=== PATIENT | male | born 1945 | race Caucasian/White ===

== ENCOUNTER 2021-06-16 15:11 | Inpatient (IN) | payer OTHER ==
[2021-06-16] MEDS ORDERED: SODIUM CHLORIDE 1,000 ML IV STA (15:36)
[2021-06-16 16:08] LABS: HEMATOCRIT 24.4 % (35.4-49); HEMOGLOBIN 7.6 GM/dL (11.7-16.9); MCH 21.7 pg (25.7-33.7); MCHC 31.2 g/dl (32.0-35.9); MEAN CELL VOLUME 69.4 fl (80-96); MEAN PLT VOLUME 8.4 fl (7.5-11.1); PLATELET COUNT 563 10^3/uL (134-434); RBC 3.52 M/mm3 (4.00-5.60); RDW 18.4 % (11.9-15.9); WHITE BLOOD COUNT 15.6 K/mm3 (4.0-10.0)
[2021-06-16 16:13] LABS: INR 1.06 (0.83-1.09)
[2021-06-16 16:16] LABS: ACTIVATED PTT 27.7 SECONDS (25.2-36.5)
[2021-06-16 16:23] LABS: VENOUS BASE EXCESS 0.2 mmol/L (-2-2); VENOUS PCO2 50.2 mmHg (38-52); VENOUS PH 7.337 (7.310-7.410)
[2021-06-16 16:24] LABS: ALBUMIN 2.2 g/dl (3.4-5.0); BLOOD UREA NITROGEN 92.5 mg/dL (7-18); CALCIUM 9.9 mg/dL (8.5-10.1); MAGNESIUM 3.4 mg/dL (1.8-2.4)
[2021-06-16 16:27] LABS: CREATININE 5.6 mg/dL (0.55-1.3)
[2021-06-16 16:29] LABS: BILIRUBIN,TOTAL 0.4 mg/dL (0.2-1); TOT PROT 8.1 g/dl (6.4-8.2)
[2021-06-16 16:30] LABS: LACTIC ACID 2.7 mmol/L (0.4-2.0)
[2021-06-16 16:35] LABS: ANISOCYTOSIS 2+; MACROCYTOSIS 0; PLATELET ESTIMATE INCREASED; TARGET CELLS 1+
[2021-06-16] MEDS ORDERED: PIPERACILLIN/TAZOB 4.5 GM 4.5 GM in DEXTROSE 5%-WATER 100 ML IVPB ONE (16:42)
[2021-06-16] MEDS ORDERED: VANCOMYCIN HCL 1,000 MG in DEXTROSE 5%-WATER - 500 ML IVPB ONE (16:42)
[2021-06-16] MEDS ORDERED: LACTATED RINGERS SOLUTION 1000 ML INFUS.BAG IV ONE (16:46)
[2021-06-16] MEDS ORDERED: VANCOMYCIN 1 GRAM (PRE-DOCKED) 1,000 MG/250 ML BAG IVPB ONE ×2 (16:50→18:10)
[2021-06-16] MEDS ORDERED: PIPERACILLIN/TAZOB 4.5 GM 4.5 GM/100 ML BAG IVPB ONE (16:50)
[2021-06-16 17:01] LABS: EPI CELLS 1 /uL (0-25.1); HYALINE CASTS 0 /uL (0-3.1); URINE APPEARANCE CLEAR; URINE BILIRUBIN 2+ (NEGATIVE); URINE COLOR DK YELLOW; URINE GLUCOSE (UA) TRACE (NEGATIVE); URINE KETONE TRACE (NEGATIVE); URINE LEUK ESTERASE 1+ (NEGATIVE); URINE NITRITE POSITIVE (NEGATIVE); URINE PROTEIN 2+ (NEGATIVE); URINE UROBILINOGEN 0.2 mg/dL (0.2-1.0); URINE WBC 1 /uL (0-25.8)
[2021-06-16] MEDS ORDERED: SODIUM CHLORIDE 1,000 ML IV SCH (21:30)
[2021-06-16] MEDS ORDERED: VANCOMYCIN 1 GM in D5W (PRE-DOCKED) 1,000 MG/250 ML IVPB SCH ×2 (21:45→22:00)
[2021-06-17] MEDS: HEPARIN NA (PORCINE) 5,000 UNITS/ML 1ML VIAL SQ SCH ×4 (01:01→23:59)
[2021-06-17] MEDS ORDERED: PIPERACILLIN/TAZOB 2.25 GM 2.25 GM in DEXTROSE 5%-WATER - 50 ML IVPB SCH (02:00)
[2021-06-17] MEDS ORDERED: VANCOMYCIN 1 GRAM (PRE-DOCKED) 1,000 MG/250 ML BAG IVPB ONE (02:35)
[2021-06-17] MEDS ORDERED: PIPERACILLIN/TAZOB 2.25 GM 2.25 GM/50 ML BAG IVPB ONE ×3 (02:35→18:11)
[2021-06-17] MEDS: PIPERACILLIN/TAZOB 2.25 GM 2.25 GM in DEXTROSE 5%-WATER - 50 ML IVPB SCH ×3 (02:48→18:11)
[2021-06-17] MEDS: INSULIN SLIDING SCALE (NOVOLOG) 1 VIAL SQ SCH ×5 (02:49→21:58)
[2021-06-17] MEDS ORDERED: VANCOMYCIN 1 GM in D5W (PRE-DOCKED) 1,000 MG/250 ML IVPB SCH (05:00)
[2021-06-17] MEDS ORDERED: HEPARIN NA (PORCINE) 5,000 UNITS/ML 1ML VIAL ONE (06:11)
[2021-06-17 06:30] LABS: BASO % 0.4 % (0-2.0); EOS % 0.1 % (0-4.5); LYMPH % 10.2 % (8-40); MCH 22.1 pg (25.7-33.7); MCHC 31.8 g/dl (32.0-35.9); MEAN CELL VOLUME 69.5 fl (80-96); MEAN PLT VOLUME 8.3 fl (7.5-11.1); MONO % 6.3 % (3.8-10.2); PLATELET COUNT 425 10^3/uL (134-434); RBC 2.59 M/mm3 (4.00-5.60); RDW 17.8 % (11.9-15.9); RETICULOCYTES 2.05 % (0.5-1.5); WHITE BLOOD COUNT 15.7 K/mm3 (4.0-10.0)
[2021-06-17 06:44] LABS: HEMOGLOBIN 5.7 GM/dL (11.7-16.9)
[2021-06-17 06:48] LABS: BLOOD UREA NITROGEN 98.8 mg/dL (7-18)
[2021-06-17 06:52] LABS: BILIRUBIN,TOTAL 0.5 mg/dL (0.2-1); CREATININE 5.3 mg/dL (0.55-1.3); PHOSPHOROUS 5.6 mg/dL (2.5-4.9); TOT PROT 6.4 g/dl (6.4-8.2)
[2021-06-17 06:56] LABS: ALBUMIN 1.7 g/dl (3.4-5.0); CALCIUM 8.4 mg/dL (8.5-10.1)
[2021-06-17] MEDS ORDERED: PORTA CATH FLUSH 10 ML IVPUSH PRN (10:29)
[2021-06-17 11:20] LABS: HEMATOCRIT 18.7 % (35.4-49); MCH 22.5 pg (25.7-33.7); MCHC 32.7 g/dl (32.0-35.9); MEAN CELL VOLUME 68.7 fl (80-96); MEAN PLT VOLUME 7.6 fl (7.5-11.1); PLATELET COUNT 444 10^3/uL (134-434); RBC 2.72 M/mm3 (4.00-5.60); WHITE BLOOD COUNT 14.8 K/mm3 (4.0-10.0)
[2021-06-17 11:29] LABS: HEMOGLOBIN 6.1 GM/dL (11.7-16.9)
[2021-06-17 11:32] LABS: INR 1.11 (0.83-1.09); PROTHROMBIN TIME (PATIENT) 13.4 SEC (9.7-13.0)
[2021-06-17 11:45] LABS: CHLORIDE 100 mmol/L (98-107); SODIUM 136 mmol/L (136-145)
[2021-06-17 11:49] LABS: CALCIUM 8.7 mg/dL (8.5-10.1)
[2021-06-17 11:50] LABS: ALBUMIN 1.8 g/dl (3.4-5.0); ANION GAP 10 MMOL/L (8-16); CO2 26 mmol/L (21-32); GLUCOSE,RANDOM 165 mg/dL (74-106)
[2021-06-17 11:55] LABS: BILIRUBIN,TOTAL 0.5 mg/dL (0.2-1); CREATININE 5.4 mg/dL (0.55-1.3); SGOT/AST 20 U/L (15-37); SGPT/ALT 49 U/L (13-61)
[2021-06-17 11:56] LABS: ALK PHOS 213 U/L (45-117); PHOSPHOROUS 5.3 mg/dL (2.5-4.9)
[2021-06-17 11:57] LABS: TOT PROT 6.5 g/dl (6.4-8.2)
[2021-06-17 12:01] LABS: BLOOD UREA NITROGEN 106.8 mg/dL (7-18)
[2021-06-17 14:02] LABS: ANISOCYTOSIS 1+; MACROCYTOSIS 0; OVALOCYTE 1+; PLATELET ESTIMATE NORMAL
[2021-06-17] MEDS ORDERED: ENOXAPARIN NA (PORCINE) 40 MG/0.4 ML DISP.SYRIN SQ ONE (18:07)
[2021-06-17] MEDS: SENNOSIDES 8.8 MG/5 ML BULK BOTTLE GT SCH (21:58)
[2021-06-18] MEDS: AMANTADINE HCL 100MG/10 ML UNIT DOSE CUPS GT SCH
[2021-06-18] MEDS ORDERED: PIPERACILLIN/TAZOBACTAM 2.25 GM VIAL IVPB ONE ×4 (01:45→21:09)
[2021-06-18] MEDS ORDERED: DEXTROSE 5%-WATER - 50 ML IVPB ONE ×4 (01:46→21:10)
[2021-06-18] MEDS: PIPERACILLIN/TAZOB 2.25 GM 2.25 GM in DEXTROSE 5%-WATER - 50 ML IVPB SCH ×3 (02:06→18:43)
[2021-06-18] MEDS: HEPARIN NA (PORCINE) 5,000 UNITS/ML 1ML VIAL SQ SCH ×3 (06:03→21:21)
[2021-06-18] MEDS: INSULIN SLIDING SCALE (NOVOLOG) 1 VIAL SQ SCH ×4 (06:03→21:25)
[2021-06-18 07:09] LABS: CHLORIDE 101 mmol/L (98-107); SODIUM 136 mmol/L (136-145)
[2021-06-18 07:14] LABS: ANION GAP 9 MMOL/L (8-16); CALCIUM 8.4 mg/dL (8.5-10.1); CO2 26 mmol/L (21-32)
[2021-06-18 07:15] LABS: ALBUMIN 1.7 g/dl (3.4-5.0); GLUCOSE,RANDOM 163 mg/dL (74-106); MAGNESIUM 3.1 mg/dL (1.8-2.4)
[2021-06-18 07:17] LABS: CREATININE 5.2 mg/dL (0.55-1.3); PHOSPHOROUS 5.6 mg/dL (2.5-4.9); SGPT/ALT 50 U/L (13-61)
[2021-06-18 07:18] LABS: SGOT/AST 62 U/L (15-37)
[2021-06-18 07:19] LABS: BILIRUBIN,TOTAL 0.8 mg/dL (0.2-1); TOT PROT 7.1 g/dl (6.4-8.2)
[2021-06-18 07:20] LABS: ALK PHOS 220 U/L (45-117); BLOOD UREA NITROGEN 105.3 mg/dL (7-18); HEMATOCRIT 22.7 % (35.4-49); HEMOGLOBIN 7.5 GM/dL (11.7-16.9); MCH 23.7 pg (25.7-33.7); MEAN CELL VOLUME 71.9 fl (80-96); MEAN PLT VOLUME 8.8 fl (7.5-11.1); PLATELET COUNT 430 10^3/uL (134-434); RBC 3.16 M/mm3 (4.00-5.60); RDW 20.3 % (11.9-15.9)
[2021-06-18 07:46] LABS: WHITE BLOOD COUNT 27.6 K/mm3 (4.0-10.0)
[2021-06-18 09:16] LABS: ANISOCYTOSIS 3+; MACROCYTOSIS 0; PLATELET ESTIMATE NORMAL
[2021-06-18] MEDS ORDERED: SODIUM ZIRCONIUM CYCLOSILICATE (LOKELMA) 5 GM PACKET GT SCH (10:00)
[2021-06-18] MEDS ORDERED: PT OWN MED DRAWER 7, Y5N ONE (10:42)
[2021-06-18] MEDS: ZINC SULFATE 220 MG CAPSULE (FP) GT SCH (11:59)
[2021-06-18] MEDS: FOLIC ACID 1 MG TABLET (FP) GT SCH (11:59)
[2021-06-18] MEDS: COLLAGENASE CLOSTRIDIUM HIST. 30 GRAMS TUBE TP SCH (11:59)
[2021-06-18] MEDS: SENNOSIDES 8.8 MG/5 ML BULK BOTTLE GT SCH ×2 (12:00→21:22)
[2021-06-18] MEDS: CHOLECALCIFEROL (VIT D3) 1,000 UNIT (25 MCG) TABLET GT SCH (12:00)
[2021-06-18] MEDS ORDERED: SODIUM CHLORIDE 250 ML IV PRN (15:51)
[2021-06-18] MEDS ORDERED: EPOETIN ALFA-EPBX 10,000 UNIT/ML VIAL IVPUSH ONE (16:00)
[2021-06-18] MEDS: AMINO ACIDS/PROTEIN HYDROLYS 30 ML LIQUID.PKT PO SCH (18:43)
[2021-06-19] MEDS: PIPERACILLIN/TAZOB 2.25 GM 2.25 GM in DEXTROSE 5%-WATER - 50 ML IVPB SCH ×3 (01:24→18:38)
[2021-06-19] MEDS ORDERED: PIPERACILLIN/TAZOBACTAM 2.25 GM VIAL IVPB ONE ×3 (05:31→18:27)
[2021-06-19] MEDS ORDERED: DEXTROSE 5%-WATER - 50 ML IVPB ONE ×3 (05:31→18:27)
[2021-06-19] MEDS: HEPARIN NA (PORCINE) 5,000 UNITS/ML 1ML VIAL SQ SCH ×3 (05:33→21:36)
[2021-06-19] MEDS: INSULIN SLIDING SCALE (NOVOLOG) 1 VIAL SQ SCH ×4 (06:58→21:35)
[2021-06-19 08:06] LABS: BASO % 0.5 % (0-2.0); EOS % 0.2 % (0-4.5); HEMATOCRIT 25.8 % (35.4-49); HEMOGLOBIN 8.3 GM/dL (11.7-16.9); LYMPH % 9.5 % (8-40); MCH 23.2 pg (25.7-33.7); MCHC 32.3 g/dl (32.0-35.9); MEAN CELL VOLUME 71.9 fl (80-96); MEAN PLT VOLUME 7.9 fl (7.5-11.1); MONO % 3.7 % (3.8-10.2); NEUT % 86.1 % (42.8-82.8); PLATELET COUNT 521 10^3/uL (134-434); RBC 3.59 M/mm3 (4.00-5.60); RDW 20.3 % (11.9-15.9); WHITE BLOOD COUNT 16.1 K/mm3 (4.0-10.0)
[2021-06-19 08:24] LABS: ALBUMIN 1.8 g/dl (3.4-5.0); CALCIUM 8.4 mg/dL (8.5-10.1)
[2021-06-19 08:25] LABS: MAGNESIUM 2.2 mg/dL (1.8-2.4)
[2021-06-19 08:27] LABS: CREATININE 2.9 mg/dL (0.55-1.3)
[2021-06-19 08:28] LABS: PHOSPHOROUS 2.9 mg/dL (2.5-4.9)
[2021-06-19 08:29] LABS: BILIRUBIN,TOTAL 0.5 mg/dL (0.2-1); TOT PROT 7.1 g/dl (6.4-8.2)
[2021-06-19 08:35] LABS: BLOOD UREA NITROGEN 46.6 mg/dL (7-18)
[2021-06-19] MEDS: AMINO ACIDS/PROTEIN HYDROLYS 30 ML LIQUID.PKT PO SCH ×3 (08:35→18:38)
[2021-06-19] MEDS ORDERED: POTASSIUM CHLORIDE ORAL LIQUID 20 MEQ/15 ML GT ONE (09:15)
[2021-06-19] MEDS ORDERED: PT OWN MED DRAWER 7, Y5N ONE (10:21)
[2021-06-19] MEDS: CHOLECALCIFEROL (VIT D3) 1,000 UNIT (25 MCG) TABLET GT SCH (10:35)
[2021-06-19] MEDS: FOLIC ACID 1 MG TABLET (FP) GT SCH (10:35)
[2021-06-19] MEDS: COLLAGENASE CLOSTRIDIUM HIST. 30 GRAMS TUBE TP SCH (10:35)
[2021-06-19] MEDS: ZINC SULFATE 220 MG CAPSULE (FP) GT SCH (10:35)
[2021-06-19] MEDS: SENNOSIDES 8.8 MG/5 ML BULK BOTTLE GT SCH ×2 (10:52→21:37)
[2021-06-20] MEDS ORDERED: DEXTROSE 5%-WATER - 50 ML IVPB ONE ×4 (00:54→19:49)
[2021-06-20] MEDS ORDERED: PIPERACILLIN/TAZOBACTAM 2.25 GM VIAL IVPB ONE ×4 (00:54→19:49)
[2021-06-20] MEDS: PIPERACILLIN/TAZOB 2.25 GM 2.25 GM in DEXTROSE 5%-WATER - 50 ML IVPB SCH ×3 (01:02→17:49)
[2021-06-20] MEDS: HEPARIN NA (PORCINE) 5,000 UNITS/ML 1ML VIAL SQ SCH ×3 (06:11→21:22)
[2021-06-20] MEDS: INSULIN SLIDING SCALE (NOVOLOG) 1 VIAL SQ SCH ×4 (06:29→21:32)
[2021-06-20] MEDS: AMANTADINE HCL 100MG/10 ML UNIT DOSE CUPS GT SCH (06:39)
[2021-06-20 07:56] LABS: BASO % 0.5 % (0-2.0); EOS % 0.1 % (0-4.5); HEMATOCRIT 24.2 % (35.4-49); HEMOGLOBIN 7.7 GM/dL (11.7-16.9); LYMPH % 10.5 % (8-40); MCH 23.3 pg (25.7-33.7); MCHC 31.9 g/dl (32.0-35.9); MEAN CELL VOLUME 72.9 fl (80-96); MEAN PLT VOLUME 8.1 fl (7.5-11.1); MONO % 4.1 % (3.8-10.2); NEUT % 84.8 % (42.8-82.8); PLATELET COUNT 520 10^3/uL (134-434); RBC 3.32 M/mm3 (4.00-5.60); RDW 20.3 % (11.9-15.9)
[2021-06-20 08:11] LABS: ALBUMIN 1.7 g/dl (3.4-5.0); CALCIUM 8.5 mg/dL (8.5-10.1)
[2021-06-20 08:12] LABS: BLOOD UREA NITROGEN 70.6 mg/dL (7-18); MAGNESIUM 2.4 mg/dL (1.8-2.4)
[2021-06-20 08:15] LABS: PHOSPHOROUS 4.1 mg/dL (2.5-4.9)
[2021-06-20] MEDS ORDERED: POTASSIUM CHLORIDE ORAL LIQUID 20 MEQ/15 ML GT ONE (08:15)
[2021-06-20 08:16] LABS: BILIRUBIN,TOTAL 0.5 mg/dL (0.2-1); TOT PROT 6.7 g/dl (6.4-8.2)
[2021-06-20] MEDS: AMINO ACIDS/PROTEIN HYDROLYS 30 ML LIQUID.PKT PO SCH ×3 (09:00→17:51)
[2021-06-20] MEDS ORDERED: PT OWN MED DRAWER 7, Y5N ONE (09:55)
[2021-06-20] MEDS: SENNOSIDES 8.8 MG/5 ML BULK BOTTLE GT SCH ×2 (09:57→21:22)
[2021-06-20] MEDS: ZINC SULFATE 220 MG CAPSULE (FP) GT SCH (09:57)
[2021-06-20] MEDS: FOLIC ACID 1 MG TABLET (FP) GT SCH (09:59)
[2021-06-20] MEDS: COLLAGENASE CLOSTRIDIUM HIST. 30 GRAMS TUBE TP SCH (09:59)
[2021-06-20] MEDS: CHOLECALCIFEROL (VIT D3) 1,000 UNIT (25 MCG) TABLET GT SCH (09:59)
[2021-06-21] MEDS ORDERED: PIPERACILLIN/TAZOBACTAM 2.25 GM VIAL IVPB ONE ×4 (00:42→23:03)
[2021-06-21] MEDS ORDERED: DEXTROSE 5%-WATER - 50 ML IVPB ONE ×4 (00:43→23:03)
[2021-06-21] MEDS: PIPERACILLIN/TAZOB 2.25 GM 2.25 GM in DEXTROSE 5%-WATER - 50 ML IVPB SCH ×3 (01:08→17:00)
[2021-06-21] MEDS: HEPARIN NA (PORCINE) 5,000 UNITS/ML 1ML VIAL SQ SCH ×3 (05:36→21:13)
[2021-06-21] MEDS: INSULIN SLIDING SCALE (NOVOLOG) 1 VIAL SQ SCH ×4 (06:26→21:09)
[2021-06-21] MEDS ORDERED: SODIUM CHLORIDE 250 ML IV PRN (07:28)
[2021-06-21 07:51] LABS: BASO % 0.5 % (0-2.0); EOS % 0.1 % (0-4.5); HEMATOCRIT 24.2 % (35.4-49); HEMOGLOBIN 7.6 GM/dL (11.7-16.9); LYMPH % 10.5 % (8-40); MCH 22.9 pg (25.7-33.7); MCHC 31.2 g/dl (32.0-35.9); MEAN CELL VOLUME 73.3 fl (80-96); MEAN PLT VOLUME 8.1 fl (7.5-11.1); MONO % 3.8 % (3.8-10.2); NEUT % 85.1 % (42.8-82.8); PLATELET COUNT 486 10^3/uL (134-434); RDW 20.6 % (11.9-15.9); WHITE BLOOD COUNT 16.8 K/mm3 (4.0-10.0)
[2021-06-21] MEDS ORDERED: EPOETIN ALFA-EPBX 20,000 UNIT/ML VIAL IVPUSH ONE (08:00)
[2021-06-21 08:13] LABS: ALBUMIN 1.5 g/dl (3.4-5.0); BLOOD UREA NITROGEN 91.3 mg/dL (7-18)
[2021-06-21 08:14] LABS: MAGNESIUM 2.7 mg/dL (1.8-2.4)
[2021-06-21 08:16] LABS: CREATININE 4.9 mg/dL (0.55-1.3)
[2021-06-21 08:17] LABS: PHOSPHOROUS 3.9 mg/dL (2.5-4.9)
[2021-06-21 08:18] LABS: BILIRUBIN,TOTAL 0.7 mg/dL (0.2-1); TOT PROT 6.5 g/dl (6.4-8.2)
[2021-06-21] MEDS: COLLAGENASE CLOSTRIDIUM HIST. 30 GRAMS TUBE TP SCH (09:00)
[2021-06-21] MEDS: SENNOSIDES 8.8 MG/5 ML BULK BOTTLE GT SCH ×2 (09:00→21:13)
[2021-06-21] MEDS: AMINO ACIDS/PROTEIN HYDROLYS 30 ML LIQUID.PKT PO SCH ×3 (09:00→16:56)
[2021-06-21] MEDS: ZINC SULFATE 220 MG CAPSULE (FP) GT SCH (10:26)
[2021-06-21] MEDS: FOLIC ACID 1 MG TABLET (FP) GT SCH (10:26)
[2021-06-21] MEDS: CHOLECALCIFEROL (VIT D3) 1,000 UNIT (25 MCG) TABLET GT SCH (10:26)
[2021-06-21 10:36] LABS: ANISOCYTOSIS 1+; MACROCYTOSIS 0; OVALOCYTE 1+; PLATELET ESTIMATE NORMAL; TARGET CELLS 1+; TEAR DROP CELLS 1+
[2021-06-21] MEDS ORDERED: ACETAMINOPHEN 1000 MG/100 ML VIAL (NON FORMULARY) IVPB PRN (12:16)
[2021-06-21] MEDS ORDERED: PT OWN MED DRAWER 7, Y5N ONE (14:18)
[2021-06-21] MEDS: AMANTADINE HCL 100MG/10 ML UNIT DOSE CUPS GT SCH (19:00)
[2021-06-22] MEDS: PIPERACILLIN/TAZOB 2.25 GM 2.25 GM in DEXTROSE 5%-WATER - 50 ML IVPB SCH ×3 (01:01→17:56)
[2021-06-22] MEDS: HEPARIN NA (PORCINE) 5,000 UNITS/ML 1ML VIAL SQ SCH ×3 (05:00→21:09)
[2021-06-22] MEDS: INSULIN SLIDING SCALE (NOVOLOG) 1 VIAL SQ SCH ×4 (06:15→21:09)
[2021-06-22 07:06] LABS: BASO % 0.5 % (0-2.0); EOS % 0.1 % (0-4.5); HEMATOCRIT 25.6 % (35.4-49); HEMOGLOBIN 7.9 GM/dL (11.7-16.9); LYMPH % 12.7 % (8-40); MCH 22.5 pg (25.7-33.7); MCHC 30.9 g/dl (32.0-35.9); MEAN CELL VOLUME 72.8 fl (80-96); MEAN PLT VOLUME 8.4 fl (7.5-11.1); MONO % 4.4 % (3.8-10.2); NEUT % 82.3 % (42.8-82.8); PLATELET COUNT 510 10^3/uL (134-434); RBC 3.51 M/mm3 (4.00-5.60); RDW 20.1 % (11.9-15.9); WHITE BLOOD COUNT 16.8 K/mm3 (4.0-10.0)
[2021-06-22 07:21] LABS: CALCIUM 8.7 mg/dL (8.5-10.1)
[2021-06-22 07:22] LABS: ALBUMIN 1.5 g/dl (3.4-5.0); MAGNESIUM 2.2 mg/dL (1.8-2.4)
[2021-06-22 07:23] LABS: CREATININE 3.5 mg/dL (0.55-1.3)
[2021-06-22 07:25] LABS: PHOSPHOROUS 3.3 mg/dL (2.5-4.9)
[2021-06-22 07:26] LABS: BILIRUBIN,TOTAL 0.4 mg/dL (0.2-1); TOT PROT 6.5 g/dl (6.4-8.2)
[2021-06-22 07:29] LABS: BLOOD UREA NITROGEN 59.6 mg/dL (7-18)
[2021-06-22] MEDS ORDERED: PIPERACILLIN/TAZOBACTAM 2.25 GM VIAL IVPB ONE ×2 (09:01→17:45)
[2021-06-22] MEDS ORDERED: PT OWN MED DRAWER 7, Y5N ONE (09:01)
[2021-06-22] MEDS ORDERED: DEXTROSE 5%-WATER - 50 ML IVPB ONE ×2 (09:01→17:45)
[2021-06-22] MEDS: AMINO ACIDS/PROTEIN HYDROLYS 30 ML LIQUID.PKT PO SCH ×3 (09:21→17:55)
[2021-06-22] MEDS: COLLAGENASE CLOSTRIDIUM HIST. 30 GRAMS TUBE TP SCH (09:22)
[2021-06-22] MEDS: CHOLECALCIFEROL (VIT D3) 1,000 UNIT (25 MCG) TABLET GT SCH (09:22)
[2021-06-22] MEDS: FOLIC ACID 1 MG TABLET (FP) GT SCH (09:22)
[2021-06-22] MEDS: ZINC SULFATE 220 MG CAPSULE (FP) GT SCH (09:22)
[2021-06-22] MEDS: SENNOSIDES 8.8 MG/5 ML BULK BOTTLE GT SCH ×2 (12:14→21:09)
[2021-06-22] MEDS ORDERED: SODIUM CHLORIDE 250 ML IV PRN (13:17)
[2021-06-22 15:30] VITALS: BMI 19.6
[2021-06-23] MEDS ORDERED: PIPERACILLIN/TAZOBACTAM 2.25 GM VIAL IVPB ONE ×3 (02:27→17:15)
[2021-06-23] MEDS ORDERED: DEXTROSE 5%-WATER - 50 ML IVPB ONE ×3 (02:27→17:15)
[2021-06-23] MEDS: PIPERACILLIN/TAZOB 2.25 GM 2.25 GM in DEXTROSE 5%-WATER - 50 ML IVPB SCH ×3 (02:37→17:19)
[2021-06-23] MEDS: HEPARIN NA (PORCINE) 5,000 UNITS/ML 1ML VIAL SQ SCH ×3 (06:09→23:04)
[2021-06-23] MEDS: INSULIN SLIDING SCALE (NOVOLOG) 1 VIAL SQ SCH ×4 (06:09→23:10)
[2021-06-23] MEDS ORDERED: EPOETIN ALFA-EPBX 20,000 UNIT/ML VIAL IVPUSH ONE (07:00)
[2021-06-23] MEDS: AMINO ACIDS/PROTEIN HYDROLYS 30 ML LIQUID.PKT PO SCH ×3 (08:56→17:19)
[2021-06-23 09:20] LABS: HEMATOCRIT 23.4 % (35.4-49); HEMOGLOBIN 7.4 GM/dL (11.7-16.9); MCHC 31.5 g/dl (32.0-35.9); MEAN CELL VOLUME 73.2 fl (80-96); MEAN PLT VOLUME 8.4 fl (7.5-11.1); PLATELET COUNT 478 10^3/uL (134-434); WHITE BLOOD COUNT 16.9 K/mm3 (4.0-10.0)
[2021-06-23 09:39] LABS: ALBUMIN 1.5 g/dl (3.4-5.0); CALCIUM 9.1 mg/dL (8.5-10.1); MAGNESIUM 2.6 mg/dL (1.8-2.4)
[2021-06-23 09:41] LABS: BILIRUBIN,TOTAL 0.4 mg/dL (0.2-1)
[2021-06-23 09:43] LABS: CREATININE 5.1 mg/dL (0.55-1.3); PHOSPHOROUS 4.1 mg/dL (2.5-4.9); TOT PROT 6.6 g/dl (6.4-8.2)
[2021-06-23 09:54] LABS: BLOOD UREA NITROGEN 88.3 mg/dL (7-18)
[2021-06-23] MEDS ORDERED: PT OWN MED DRAWER 7, Y5N ONE ×2 (10:21→23:00)
[2021-06-23] MEDS: COLLAGENASE CLOSTRIDIUM HIST. 30 GRAMS TUBE TP SCH (10:59)
[2021-06-23] MEDS: CHOLECALCIFEROL (VIT D3) 1,000 UNIT (25 MCG) TABLET GT SCH (10:59)
[2021-06-23] MEDS: ZINC SULFATE 220 MG CAPSULE (FP) GT SCH (10:59)
[2021-06-23] MEDS: FOLIC ACID 1 MG TABLET (FP) GT SCH (10:59)
[2021-06-23] MEDS: SENNOSIDES 8.8 MG/5 ML BULK BOTTLE GT SCH ×2 (11:00→23:00)
[2021-06-23 12:28] LABS: ANISOCYTOSIS 1+; MACROCYTOSIS 0; PLATELET ESTIMATE INCREASED
[2021-06-23] MEDS: AMANTADINE HCL 100MG/10 ML UNIT DOSE CUPS GT SCH (17:51)
[2021-06-23] MEDS: INSULIN (LEVEMIR) 100 UNITS/ML UNITS SQ SCH (23:04)
[2021-06-24] MEDS ORDERED: DEXTROSE 5%-WATER - 50 ML IVPB ONE ×3 (00:24→17:20)
[2021-06-24] MEDS ORDERED: PIPERACILLIN/TAZOBACTAM 2.25 GM VIAL IVPB ONE ×3 (00:24→17:20)
[2021-06-24] MEDS: PIPERACILLIN/TAZOB 2.25 GM 2.25 GM in DEXTROSE 5%-WATER - 50 ML IVPB SCH ×3 (00:59→17:23)
[2021-06-24] MEDS: HEPARIN NA (PORCINE) 5,000 UNITS/ML 1ML VIAL SQ SCH ×3 (05:33→21:20)
[2021-06-24] MEDS: INSULIN SLIDING SCALE (NOVOLOG) 1 VIAL SQ SCH ×4 (06:17→21:19)
[2021-06-24 06:34] LABS: BASO % 0.6 % (0-2.0); EOS % 0.1 % (0-4.5); HEMATOCRIT 23.3 % (35.4-49); HEMOGLOBIN 7.3 GM/dL (11.7-16.9); MCH 23.1 pg (25.7-33.7); MCHC 31.2 g/dl (32.0-35.9); MEAN CELL VOLUME 73.9 fl (80-96); MEAN PLT VOLUME 8.4 fl (7.5-11.1); MONO % 5.7 % (3.8-10.2); NEUT % 77.6 % (42.8-82.8); PLATELET COUNT 460 10^3/uL (134-434); RBC 3.15 M/mm3 (4.00-5.60); RDW 20.8 % (11.9-15.9); WHITE BLOOD COUNT 15.2 K/mm3 (4.0-10.0)
[2021-06-24 06:54] LABS: ALBUMIN 1.4 g/dl (3.4-5.0); CALCIUM 9.4 mg/dL (8.5-10.1)
[2021-06-24 06:56] LABS: MAGNESIUM 2.4 mg/dL (1.8-2.4)
[2021-06-24 06:58] LABS: CREATININE 3.8 mg/dL (0.55-1.3); PHOSPHOROUS 2.8 mg/dL (2.5-4.9)
[2021-06-24 06:59] LABS: BILIRUBIN,TOTAL 0.6 mg/dL (0.2-1); TOT PROT 6.5 g/dl (6.4-8.2)
[2021-06-24 07:02] LABS: BLOOD UREA NITROGEN 48.8 mg/dL (7-18)
[2021-06-24] MEDS: AMINO ACIDS/PROTEIN HYDROLYS 30 ML LIQUID.PKT PO SCH ×3 (08:20→17:23)
[2021-06-24] MEDS: FOLIC ACID 1 MG TABLET (FP) GT SCH (10:19)
[2021-06-24] MEDS: CHOLECALCIFEROL (VIT D3) 1,000 UNIT (25 MCG) TABLET GT SCH (10:19)
[2021-06-24] MEDS: ZINC SULFATE 220 MG CAPSULE (FP) GT SCH (10:19)
[2021-06-24] MEDS: COLLAGENASE CLOSTRIDIUM HIST. 30 GRAMS TUBE TP SCH (10:20)
[2021-06-24] MEDS: SENNOSIDES 8.8 MG/5 ML BULK BOTTLE GT SCH ×2 (10:21→21:20)
[2021-06-24] MEDS ORDERED: PT OWN MED DRAWER 7, Y5N ONE (21:07)
[2021-06-24] MEDS: INSULIN (LEVEMIR) 100 UNITS/ML UNITS SQ SCH (21:19)
[2021-06-25] MEDS ORDERED: PIPERACILLIN/TAZOBACTAM 2.25 GM VIAL IVPB ONE ×3 (01:02→17:24)
[2021-06-25] MEDS ORDERED: DEXTROSE 5%-WATER - 50 ML IVPB ONE ×3 (01:02→17:24)
[2021-06-25] MEDS: PIPERACILLIN/TAZOB 2.25 GM 2.25 GM in DEXTROSE 5%-WATER - 50 ML IVPB SCH ×3 (01:07→17:51)
[2021-06-25] MEDS: HEPARIN NA (PORCINE) 5,000 UNITS/ML 1ML VIAL SQ SCH ×3 (05:49→21:32)
[2021-06-25] MEDS: INSULIN SLIDING SCALE (NOVOLOG) 1 VIAL SQ SCH ×4 (05:59→21:36)
[2021-06-25] MEDS ORDERED: SODIUM CHLORIDE 250 ML IV PRN (07:00)
[2021-06-25] MEDS ORDERED: EPOETIN ALFA-EPBX 20,000 UNIT/ML VIAL IVPUSH ONE (07:00)
[2021-06-25 07:43] LABS: HEMATOCRIT 23.6 % (35.4-49); HEMOGLOBIN 7.2 GM/dL (11.7-16.9); MCH 22.7 pg (25.7-33.7); MCHC 30.5 g/dl (32.0-35.9); MEAN CELL VOLUME 74.3 fl (80-96); MEAN PLT VOLUME 8.9 fl (7.5-11.1); PLATELET COUNT 419 10^3/uL (134-434); RBC 3.18 M/mm3 (4.00-5.60); RDW 21.2 % (11.9-15.9); WHITE BLOOD COUNT 15.6 K/mm3 (4.0-10.0)
[2021-06-25 08:02] LABS: CALCIUM 9.2 mg/dL (8.5-10.1)
[2021-06-25 08:03] LABS: ALBUMIN 1.4 g/dl (3.4-5.0); MAGNESIUM 2.6 mg/dL (1.8-2.4)
[2021-06-25 08:06] LABS: CREATININE 5.3 mg/dL (0.55-1.3); PHOSPHOROUS 3.9 mg/dL (2.5-4.9)
[2021-06-25 08:08] LABS: BILIRUBIN,TOTAL 0.4 mg/dL (0.2-1); TOT PROT 6.2 g/dl (6.4-8.2)
[2021-06-25 09:04] LABS: ANISOCYTOSIS 3+; PLATELET ESTIMATE NORMAL
[2021-06-25] MEDS: FOLIC ACID 1 MG TABLET (FP) GT SCH (09:42)
[2021-06-25] MEDS: COLLAGENASE CLOSTRIDIUM HIST. 30 GRAMS TUBE TP SCH (09:42)
[2021-06-25] MEDS: ZINC SULFATE 220 MG CAPSULE (FP) GT SCH (09:42)
[2021-06-25] MEDS: AMINO ACIDS/PROTEIN HYDROLYS 30 ML LIQUID.PKT PO SCH ×3 (09:42→17:51)
[2021-06-25] MEDS ORDERED: PT OWN MED DRAWER 7, Y5N ONE ×2 (10:09→17:26)
[2021-06-25] MEDS: SENNOSIDES 8.8 MG/5 ML BULK BOTTLE GT SCH ×2 (10:10→21:32)
[2021-06-25] MEDS: CHOLECALCIFEROL (VIT D3) 1,000 UNIT (25 MCG) TABLET GT SCH (10:11)
[2021-06-25] MEDS: AMANTADINE HCL 100MG/10 ML UNIT DOSE CUPS GT SCH (17:51)
[2021-06-25] MEDS: INSULIN (LEVEMIR) 100 UNITS/ML UNITS SQ SCH (21:36)
[2021-06-26] MEDS ORDERED: DEXTROSE 5%-WATER - 50 ML IVPB ONE ×3 (01:24→17:27)
[2021-06-26] MEDS ORDERED: PIPERACILLIN/TAZOBACTAM 2.25 GM VIAL IVPB ONE ×3 (01:24→17:26)
[2021-06-26] MEDS: PIPERACILLIN/TAZOB 2.25 GM 2.25 GM in DEXTROSE 5%-WATER - 50 ML IVPB SCH ×3 (02:08→17:32)
[2021-06-26] MEDS: INSULIN SLIDING SCALE (NOVOLOG) 1 VIAL SQ SCH ×4 (06:10→22:30)
[2021-06-26] MEDS: HEPARIN NA (PORCINE) 5,000 UNITS/ML 1ML VIAL SQ SCH ×3 (06:13→23:00)
[2021-06-26] MEDS ORDERED: PT OWN MED DRAWER 7, Y5N ONE (09:39)
[2021-06-26] MEDS: ZINC SULFATE 220 MG CAPSULE (FP) GT SCH (10:02)
[2021-06-26] MEDS: AMINO ACIDS/PROTEIN HYDROLYS 30 ML LIQUID.PKT PO SCH ×3 (10:02→17:32)
[2021-06-26] MEDS: FOLIC ACID 1 MG TABLET (FP) GT SCH (10:02)
[2021-06-26] MEDS: CHOLECALCIFEROL (VIT D3) 1,000 UNIT (25 MCG) TABLET GT SCH (10:02)
[2021-06-26] MEDS: SENNOSIDES 8.8 MG/5 ML BULK BOTTLE GT SCH ×2 (10:03→23:00)
[2021-06-26] MEDS: COLLAGENASE CLOSTRIDIUM HIST. 30 GRAMS TUBE TP SCH (10:03)
[2021-06-26 12:16] LABS: HEMOGLOBIN 7.2 GM/dL (11.7-16.9); MCH 22.6 pg (25.7-33.7); MCHC 31.2 g/dl (32.0-35.9); MEAN CELL VOLUME 72.4 fl (80-96); MEAN PLT VOLUME 8.4 fl (7.5-11.1); PLATELET COUNT 365 10^3/uL (134-434); RBC 3.18 M/mm3 (4.00-5.60); WHITE BLOOD COUNT 13.2 K/mm3 (4.0-10.0)
[2021-06-26 12:40] LABS: CALCIUM 9.3 mg/dL (8.5-10.1)
[2021-06-26 12:44] LABS: CREATININE 4.1 mg/dL (0.55-1.3)
[2021-06-26 12:45] LABS: BLOOD UREA NITROGEN 61.8 mg/dL (7-18)
[2021-06-26 12:47] LABS: BILIRUBIN,TOTAL 0.6 mg/dL (0.2-1); TOT PROT 6.5 g/dl (6.4-8.2)
[2021-06-26 12:48] LABS: ALBUMIN 1.8 g/dl (3.4-5.0)
[2021-06-26] MEDS ORDERED: POTASSIUM CHLORIDE ORAL LIQUID 20 MEQ/15 ML PEG ONE (14:07)
[2021-06-26 14:29] LABS: ANISOCYTOSIS 2+; MACROCYTOSIS 0; PLATELET ESTIMATE NORMAL
[2021-06-26] MEDS: INSULIN (LEVEMIR) 100 UNITS/ML UNITS SQ SCH (22:30)
[2021-06-27] MEDS ORDERED: DEXTROSE 5%-WATER - 50 ML IVPB ONE ×3 (01:03→15:46)
[2021-06-27] MEDS ORDERED: PIPERACILLIN/TAZOBACTAM 2.25 GM VIAL IVPB ONE ×3 (01:03→15:46)
[2021-06-27] MEDS: PIPERACILLIN/TAZOB 2.25 GM 2.25 GM in DEXTROSE 5%-WATER - 50 ML IVPB SCH ×3 (02:03→17:07)
[2021-06-27] MEDS: HEPARIN NA (PORCINE) 5,000 UNITS/ML 1ML VIAL SQ SCH ×3 (06:18→21:04)
[2021-06-27] MEDS: INSULIN SLIDING SCALE (NOVOLOG) 1 VIAL SQ SCH ×4 (06:18→21:04)
[2021-06-27 06:46] LABS: HEMATOCRIT 23.7 % (35.4-49); HEMOGLOBIN 7.4 GM/dL (11.7-16.9); MCH 22.7 pg (25.7-33.7); MCHC 31.3 g/dl (32.0-35.9); MEAN CELL VOLUME 72.4 fl (80-96); MEAN PLT VOLUME 8.8 fl (7.5-11.1); PLATELET COUNT 403 10^3/uL (134-434); RBC 3.27 M/mm3 (4.00-5.60); RDW 21.4 % (11.9-15.9); WHITE BLOOD COUNT 13.2 K/mm3 (4.0-10.0)
[2021-06-27 06:56] LABS: CALCIUM 8.8 mg/dL (8.5-10.1)
[2021-06-27 06:57] LABS: ALBUMIN 1.7 g/dl (3.4-5.0); MAGNESIUM 2.5 mg/dL (1.8-2.4)
[2021-06-27 07:00] LABS: CREATININE 5.3 mg/dL (0.55-1.3)
[2021-06-27 07:01] LABS: BILIRUBIN,TOTAL 0.5 mg/dL (0.2-1)
[2021-06-27 07:02] LABS: TOT PROT 6.4 g/dl (6.4-8.2)
[2021-06-27 07:12] LABS: BLOOD UREA NITROGEN 88.4 mg/dL (7-18)
[2021-06-27] MEDS ORDERED: PT OWN MED DRAWER 7, Y5N ONE ×2 (08:14→20:24)
[2021-06-27] MEDS: AMINO ACIDS/PROTEIN HYDROLYS 30 ML LIQUID.PKT PO SCH ×3 (08:42→17:07)
[2021-06-27] MEDS ORDERED: SODIUM CHLORIDE 250 ML IV PRN (09:00)
[2021-06-27 09:26] LABS: ANISOCYTOSIS 0; MACROCYTOSIS 0; PLATELET ESTIMATE NORMAL
[2021-06-27] MEDS: FOLIC ACID 1 MG TABLET (FP) GT SCH (09:42)
[2021-06-27] MEDS: COLLAGENASE CLOSTRIDIUM HIST. 30 GRAMS TUBE TP SCH (09:42)
[2021-06-27] MEDS: SENNOSIDES 8.8 MG/5 ML BULK BOTTLE GT SCH ×2 (09:42→21:03)
[2021-06-27] MEDS: ZINC SULFATE 220 MG CAPSULE (FP) GT SCH (09:42)
[2021-06-27] MEDS: CHOLECALCIFEROL (VIT D3) 1,000 UNIT (25 MCG) TABLET GT SCH (09:46)
[2021-06-27] MEDS: AMANTADINE HCL 100MG/10 ML UNIT DOSE CUPS GT SCH (21:04)
[2021-06-27] MEDS: INSULIN (LEVEMIR) 100 UNITS/ML UNITS SQ SCH (21:04)
[2021-06-28] MEDS ORDERED: PIPERACILLIN/TAZOBACTAM 2.25 GM VIAL IVPB ONE (01:34)
[2021-06-28] MEDS ORDERED: DEXTROSE 5%-WATER - 50 ML IVPB ONE (01:34)
[2021-06-28] MEDS: PIPERACILLIN/TAZOB 2.25 GM 2.25 GM in DEXTROSE 5%-WATER - 50 ML IVPB SCH ×2 (01:36→10:22)
[2021-06-28] MEDS: HEPARIN NA (PORCINE) 5,000 UNITS/ML 1ML VIAL SQ SCH ×3 (06:14→21:30)
[2021-06-28] MEDS: INSULIN SLIDING SCALE (NOVOLOG) 1 VIAL SQ SCH ×4 (06:17→21:31)
[2021-06-28 08:00] LABS: HEMATOCRIT 22.2 % (35.4-49); HEMOGLOBIN 7.1 GM/dL (11.7-16.9); MCH 23.1 pg (25.7-33.7); MCHC 31.9 g/dl (32.0-35.9); MEAN CELL VOLUME 72.5 fl (80-96); MEAN PLT VOLUME 9.2 fl (7.5-11.1); PLATELET COUNT 405 10^3/uL (134-434); RBC 3.07 M/mm3 (4.00-5.60); RDW 21.9 % (11.9-15.9); WHITE BLOOD COUNT 14.7 K/mm3 (4.0-10.0)
[2021-06-28] MEDS: AMINO ACIDS/PROTEIN HYDROLYS 30 ML LIQUID.PKT PO SCH ×3 (08:03→16:38)
[2021-06-28 08:06] LABS: CHLORIDE 98 mmol/L (98-107); SODIUM 139 mmol/L (136-145)
[2021-06-28 08:13] LABS: CALCIUM 9.1 mg/dL (8.5-10.1)
[2021-06-28 08:14] LABS: ALBUMIN 1.7 g/dl (3.4-5.0); ANION GAP 14 MMOL/L (8-16); CO2 27 mmol/L (21-32); GLUCOSE,RANDOM 259 mg/dL (74-106); MAGNESIUM 2.8 mg/dL (1.8-2.4)
[2021-06-28 08:16] LABS: SGPT/ALT 26 U/L (13-61)
[2021-06-28 08:17] LABS: CREATININE 6.6 mg/dL (0.55-1.3); SGOT/AST 16 U/L (15-37)
[2021-06-28 08:18] LABS: BILIRUBIN,TOTAL 0.4 mg/dL (0.2-1); TOT PROT 6.5 g/dl (6.4-8.2)
[2021-06-28 08:19] LABS: ALK PHOS 184 U/L (45-117)
[2021-06-28 08:22] LABS: BLOOD UREA NITROGEN 113.8 mg/dL (7-18)
[2021-06-28] MEDS ORDERED: EPOETIN ALFA-EPBX 20,000 UNIT/ML VIAL SQ ONE (09:00)
[2021-06-28 09:47] LABS: ANISOCYTOSIS 1+; MACROCYTOSIS 0; PLATELET ESTIMATE NORMAL
[2021-06-28] MEDS: COLLAGENASE CLOSTRIDIUM HIST. 30 GRAMS TUBE TP SCH (09:54)
[2021-06-28] MEDS ORDERED: PT OWN MED DRAWER 7, Y5N ONE ×4 (10:00→21:24)
[2021-06-28] MEDS ORDERED: AMOX TR/POTASSIUM CLAVULANATE 600 MG/5 ML PO ONE (10:08)
[2021-06-28] MEDS: FOLIC ACID 1 MG TABLET (FP) GT SCH (10:29)
[2021-06-28] MEDS: CHOLECALCIFEROL (VIT D3) 1,000 UNIT (25 MCG) TABLET GT SCH (10:29)
[2021-06-28] MEDS: SENNOSIDES 8.8 MG/5 ML BULK BOTTLE GT SCH ×2 (10:29→21:32)
[2021-06-28] MEDS: ZINC SULFATE 220 MG CAPSULE (FP) GT SCH (10:29)
[2021-06-28] MEDS ORDERED: AMOX TR/POTASSIUM CLAVULANATE 600 MG/5 ML GT ONE (11:00)
[2021-06-28] MEDS: INSULIN (LEVEMIR) 100 UNITS/ML UNITS SQ SCH (21:31)
[2021-06-28] MEDS ORDERED: ACETAMINOPHEN 650 MG/20.3 ML ORAL SOLUTION (CUPS) NGT ONE (21:55)
[2021-06-29] MEDS: HEPARIN NA (PORCINE) 5,000 UNITS/ML 1ML VIAL SQ SCH ×3 (05:39→21:35)
[2021-06-29] MEDS: INSULIN SLIDING SCALE (NOVOLOG) 1 VIAL SQ SCH ×4 (06:11→21:42)
[2021-06-29 06:21] LABS: MCH 24.1 pg (25.7-33.7); MCHC 31.9 g/dl (32.0-35.9); MEAN CELL VOLUME 75.4 fl (80-96); PLATELET COUNT 372 10^3/uL (134-434); RBC 3.31 M/mm3 (4.00-5.60); WHITE BLOOD COUNT 12.4 K/mm3 (4.0-10.0)
[2021-06-29 06:37] LABS: CALCIUM 8.7 mg/dL (8.5-10.1)
[2021-06-29 06:38] LABS: ALBUMIN 1.8 g/dl (3.4-5.0); MAGNESIUM 2.3 mg/dL (1.8-2.4)
[2021-06-29 06:39] LABS: BILIRUBIN,TOTAL 0.4 mg/dL (0.2-1); TOT PROT 6.3 g/dl (6.4-8.2)
[2021-06-29 06:41] LABS: CREATININE 4.1 mg/dL (0.55-1.3)
[2021-06-29 06:56] LABS: BLOOD UREA NITROGEN 65.3 mg/dL (7-18)
[2021-06-29] MEDS: AMINO ACIDS/PROTEIN HYDROLYS 30 ML LIQUID.PKT PO SCH ×3 (09:36→16:56)
[2021-06-29] MEDS: CHOLECALCIFEROL (VIT D3) 1,000 UNIT (25 MCG) TABLET GT SCH (09:36)
[2021-06-29] MEDS: FOLIC ACID 1 MG TABLET (FP) GT SCH (09:36)
[2021-06-29] MEDS: ZINC SULFATE 220 MG CAPSULE (FP) GT SCH (09:36)
[2021-06-29] MEDS: SENNOSIDES 8.8 MG/5 ML BULK BOTTLE GT SCH ×2 (09:38→21:36)
[2021-06-29] MEDS: COLLAGENASE CLOSTRIDIUM HIST. 30 GRAMS TUBE TP SCH (09:38)
[2021-06-29 09:42] LABS: ANISOCYTOSIS 2+; MACROCYTOSIS 0; PLATELET ESTIMATE NORMAL
[2021-06-29] MEDS ORDERED: AMOX TR/POTASSIUM CLAVULANATE 600 MG/5 ML GT ONE (10:00)
[2021-06-29] MEDS: AMANTADINE HCL 100MG/10 ML UNIT DOSE CUPS GT SCH (17:45)
[2021-06-29] MEDS ORDERED: PT OWN MED DRAWER 7, Y5N ONE (21:32)
[2021-06-29] MEDS: INSULIN (LEVEMIR) 100 UNITS/ML UNITS SQ SCH (21:38)
[2021-06-30] MEDS: HEPARIN NA (PORCINE) 5,000 UNITS/ML 1ML VIAL SQ SCH ×3 (06:02→22:08)
[2021-06-30] MEDS: INSULIN SLIDING SCALE (NOVOLOG) 1 VIAL SQ SCH ×4 (06:03→22:08)
[2021-06-30 06:43] LABS: BASO % 0.6 % (0-2.0); EOS % 0.1 % (0-4.5); HEMATOCRIT 25.1 % (35.4-49); LYMPH % 15.1 % (8-40); MCH 23.8 pg (25.7-33.7); MCHC 31.7 g/dl (32.0-35.9); MEAN CELL VOLUME 75.1 fl (80-96); MEAN PLT VOLUME 9.3 fl (7.5-11.1); MONO % 5.2 % (3.8-10.2); PLATELET COUNT 401 10^3/uL (134-434); RBC 3.34 M/mm3 (4.00-5.60); RDW 23.7 % (11.9-15.9); WHITE BLOOD COUNT 12.6 K/mm3 (4.0-10.0)
[2021-06-30 07:11] LABS: ALBUMIN 1.8 g/dl (3.4-5.0); CALCIUM 9.5 mg/dL (8.5-10.1)
[2021-06-30 07:12] LABS: MAGNESIUM 2.8 mg/dL (1.8-2.4)
[2021-06-30 07:15] LABS: CREATININE 5.5 mg/dL (0.55-1.3)
[2021-06-30 07:16] LABS: BILIRUBIN,TOTAL 0.3 mg/dL (0.2-1); TOT PROT 6.4 g/dl (6.4-8.2)
[2021-06-30 07:29] LABS: BLOOD UREA NITROGEN 97.2 mg/dL (7-18)
[2021-06-30] MEDS ORDERED: PT OWN MED DRAWER 7, Y5N ONE (10:04)
[2021-06-30] MEDS: CHOLECALCIFEROL (VIT D3) 1,000 UNIT (25 MCG) TABLET GT SCH (10:06)
[2021-06-30] MEDS: AMINO ACIDS/PROTEIN HYDROLYS 30 ML LIQUID.PKT PO SCH ×3 (10:06→17:13)
[2021-06-30] MEDS: SENNOSIDES 8.8 MG/5 ML BULK BOTTLE GT SCH ×2 (10:06→22:08)
[2021-06-30] MEDS: FOLIC ACID 1 MG TABLET (FP) GT SCH (10:06)
[2021-06-30] MEDS: COLLAGENASE CLOSTRIDIUM HIST. 30 GRAMS TUBE TP SCH (14:29)
[2021-06-30] MEDS: ZINC SULFATE 220 MG CAPSULE (FP) GT SCH (14:29)
[2021-06-30] MEDS: INSULIN (LEVEMIR) 100 UNITS/ML UNITS SQ SCH (22:08)
[2021-07-01] MEDS: HEPARIN NA (PORCINE) 5,000 UNITS/ML 1ML VIAL SQ SCH ×2 (06:35→13:21)
[2021-07-01] MEDS: INSULIN SLIDING SCALE (NOVOLOG) 1 VIAL SQ SCH ×4 (06:37→21:25)
[2021-07-01] MEDS ORDERED: PT OWN MED DRAWER 7, Y5N ONE ×2 (10:04→17:04)
[2021-07-01] MEDS: CHOLECALCIFEROL (VIT D3) 1,000 UNIT (25 MCG) TABLET GT SCH (10:10)
[2021-07-01] MEDS: ZINC SULFATE 220 MG CAPSULE (FP) GT SCH (10:10)
[2021-07-01] MEDS: FOLIC ACID 1 MG TABLET (FP) GT SCH (10:10)
[2021-07-01] MEDS: COLLAGENASE CLOSTRIDIUM HIST. 30 GRAMS TUBE TP SCH (10:10)
[2021-07-01] MEDS: AMINO ACIDS/PROTEIN HYDROLYS 30 ML LIQUID.PKT PO SCH ×3 (10:10→17:08)
[2021-07-01] MEDS: SENNOSIDES 8.8 MG/5 ML BULK BOTTLE GT SCH ×2 (10:11→21:18)
[2021-07-01] MEDS: AMANTADINE HCL 100MG/10 ML UNIT DOSE CUPS GT SCH (17:58)
[2021-07-01] MEDS ORDERED: SODIUM CHLORIDE 250 ML IV PRN (19:04)
[2021-07-01] MEDS: INSULIN (LEVEMIR) 100 UNITS/ML UNITS SQ SCH (21:18)
[2021-07-02] MEDS: INSULIN SLIDING SCALE (NOVOLOG) 1 VIAL SQ SCH ×4 (06:56→21:28)
[2021-07-02 07:17] LABS: BASO % 0.6 % (0-2.0); EOS % 0.1 % (0-4.5); HEMATOCRIT 28.3 % (35.4-49); HEMOGLOBIN 8.8 GM/dL (11.7-16.9); LYMPH % 18.4 % (8-40); MCH 23.3 pg (25.7-33.7); MCHC 31.1 g/dl (32.0-35.9); MEAN CELL VOLUME 74.7 fl (80-96); MEAN PLT VOLUME 9.3 fl (7.5-11.1); MONO % 5.9 % (3.8-10.2); PLATELET COUNT 499 10^3/uL (134-434); RBC 3.79 M/mm3 (4.00-5.60); RDW 23.4 % (11.9-15.9); WHITE BLOOD COUNT 13.5 K/mm3 (4.0-10.0)
[2021-07-02 07:25] LABS: ALBUMIN 1.9 g/dl (3.4-5.0); MAGNESIUM 2.8 mg/dL (1.8-2.4)
[2021-07-02 07:28] LABS: CREATININE 5.4 mg/dL (0.55-1.3)
[2021-07-02 07:30] LABS: BILIRUBIN,TOTAL 0.5 mg/dL (0.2-1); TOT PROT 6.9 g/dl (6.4-8.2)
[2021-07-02 08:04] LABS: INR 1.05 (0.83-1.09); PROTHROMBIN TIME (PATIENT) 12.9 SEC (9.7-13.0)
[2021-07-02] MEDS: FOLIC ACID 1 MG TABLET (FP) GT SCH (09:41)
[2021-07-02] MEDS: AMINO ACIDS/PROTEIN HYDROLYS 30 ML LIQUID.PKT PO SCH ×3 (09:41→17:52)
[2021-07-02] MEDS: ZINC SULFATE 220 MG CAPSULE (FP) GT SCH (09:41)
[2021-07-02] MEDS: CHOLECALCIFEROL (VIT D3) 1,000 UNIT (25 MCG) TABLET GT SCH (09:41)
[2021-07-02] MEDS: SENNOSIDES 8.8 MG/5 ML BULK BOTTLE GT SCH ×2 (09:41→21:22)
[2021-07-02] MEDS ORDERED: EPOETIN ALFA-EPBX 10,000 UNIT/ML VIAL IVPUSH ONE (11:15)
[2021-07-02] MEDS: COLLAGENASE CLOSTRIDIUM HIST. 30 GRAMS TUBE TP SCH (12:02)
[2021-07-02] MEDS ORDERED: PT OWN MED DRAWER 7, Y5N ONE ×2 (12:23→21:11)
[2021-07-02] MEDS ORDERED: PORTA CATH FLUSH 10 ML IVPUSH PRN (13:16)
[2021-07-02] MEDS: INSULIN (LEVEMIR) 100 UNITS/ML UNITS SQ SCH (21:28)
[2021-07-02 22:00] VITALS: BP 98/69; PULSE 111; TEMP 99.3
== END 2021-07-02 22:50 | DRG 314 ==
LOC: JER 15:11 → JERBED 15:36 → J2W 06-17 20:54
PROVIDERS: ADMIT Internal Medicine; ATTEND Nurse Practitioner Acute Care
PROC: 5A1955Z Respiratory Ventilation, Greater than 96 Consecutive Hours (ICD-10-PCS; 2021-06-16)
PROC: 30233N1 Transfusion of Nonautologous Red Blood Cells into Peripheral Vein, Percutaneous Approach (ICD-10-PCS; 2021-06-17)
PROC: 0JH63XZ Insertion of Tunneled Vascular Access Device into Chest Subcutaneous Tissue and Fascia, Percutaneous Approach (ICD-10-PCS; principal; 2021-06-18)
PROC: 02H633Z Insertion of Infusion Device into Right Atrium, Percutaneous Approach (ICD-10-PCS; 2021-06-18)
PROC: B518ZZA Fluoroscopy of Superior Vena Cava, Guidance (ICD-10-PCS; 2021-06-18)
PROC: 5A1D70Z Performance of Urinary Filtration, Intermittent, Less than 6 Hours Per Day (ICD-10-PCS; 2021-06-18)
PROC: 5A1D70Z Performance of Urinary Filtration, Intermittent, Less than 6 Hours Per Day (ICD-10-PCS; 2021-06-21)
PROC: 5A1D70Z Performance of Urinary Filtration, Intermittent, Less than 6 Hours Per Day (ICD-10-PCS; 2021-06-23)
PROC: 5A1D70Z Performance of Urinary Filtration, Intermittent, Less than 6 Hours Per Day (ICD-10-PCS; 2021-06-25)
PROC: 5A1D70Z Performance of Urinary Filtration, Intermittent, Less than 6 Hours Per Day (ICD-10-PCS; 2021-06-28)
PROC: 5A1D70Z Performance of Urinary Filtration, Intermittent, Less than 6 Hours Per Day (ICD-10-PCS; 2021-06-30)
PROC: 5A1D70Z Performance of Urinary Filtration, Intermittent, Less than 6 Hours Per Day (ICD-10-PCS; 2021-07-02)
DX: T82.7XXA Infection and inflammatory reaction due to other cardiac and vascular devices, implants and grafts, initial encounter (principal); L89.153 Pressure ulcer of sacral region, stage 3; N18.6 End stage renal disease; I69.351 Hemiplegia and hemiparesis following cerebral infarction affecting right dominant side; N39.0 Urinary tract infection, site not specified; J96.11 Chronic respiratory failure with hypoxia; E46 Unspecified protein-calorie malnutrition; Z68.1 Body mass index [BMI] 19.9 or less, adult; I12.0 Hypertensive chronic kidney disease with stage 5 chronic kidney disease or end stage renal disease; G20 Parkinson's disease; Z93.1 Gastrostomy status; Z93.0 Tracheostomy status; E50.9 Vitamin A deficiency, unspecified; E20.9 Hypoparathyroidism, unspecified; D63.1 Anemia in chronic kidney disease; R50.9 Fever, unspecified; E87.5 Hyperkalemia; E11.22 Type 2 diabetes mellitus with diabetic chronic kidney disease; Z99.2 Dependence on renal dialysis; Y83.8 Other surgical procedures as the cause of abnormal reaction of the patient, or of later complication, without mention of misadventure at the time of the procedure
CPT/HCPCS: 36415; 36430; 36558; 36589; 70450-TC; 71045-TC-FY; 77001-TC-FY; 80053; 81003; 82272; 82550; 82803; 82962; 83036; 83540; 83550; 83605; 83735; 84100; 84484; 85025; 85045; 85610; 85730; 86706; 86707; 86708; 86769; 86850; 86900; 86901; 86922; 87040; 87070; 87086; 87102; 87116; 87186; 87205; 87206; 87210; 87340; 87350; 87517; 87522; 87804; 93005; 93010; 93306-TC; 94002; 99291; C1750; C1751; C9803; G0480; J1644; P9058; Q5106; U0003; U0005